=== PATIENT | male | born 1965 | race Caucasian/White ===

== ENCOUNTER 2016-09-29 19:25 | Emergency (ER) | payer BC ==
[~2016-09-29 19:25] MED LIST: Acetaminophen/HYDROcodone 325-5 MG Tab PO ONE
[2016-09-29 19:35] VITALS: BP 129/75
[2016-09-29] MEDS ORDERED: Morphine 4 MG/ML Syringe IM ONE (19:43)
[2016-09-29] MEDS ORDERED: Ondansetron 4 MG Tab.DIS PO ONE ×2 (19:43→21:45)
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
[2016-09-29] MEDS ORDERED: Ondansetron 4 MG/2 ML SDV IVPUSH STA (21:21)
[2016-09-29] MEDS ORDERED: HYDROmorphone 1 MG/ML Syringe IVPUSH ONE (21:21)
[2016-09-29] MEDS ORDERED: HYDROmorphone 1 MG/ML Syringe IM ONE (21:45)
[2016-09-29] MEDS ORDERED: Take Home: Acetaminophen/HYDROcodone 325-5 MG, 2 Tab Pack PO ONE (22:00)
[2016-09-29] MEDS ORDERED: Acetaminophen/HYDROcodone 325-5 MG Tab ONE (22:02)
== END 2016-09-29 22:15 | disposition home or self-care (01) ==
LOC: CC.ED 19:25
DX: S42.114A Nondisplaced fracture of body of scapula, right shoulder, initial encounter for closed fracture (principal); Z79.4 Long term (current) use of insulin; Z79.899 Other long term (current) drug therapy; W01.0XXA Fall on same level from slipping, tripping and stumbling without subsequent striking against object, initial encounter; Y93.89 Activity, other specified
CPT/HCPCS: 73030; 96372; 99283; A9270; J1170; J2270

== ENCOUNTER 2022-12-02 14:33 | Emergency (ER) | payer OTHER, BC ==
[2022-12-02] MEDS ORDERED: Diphtheria,Pertussis(Acell),Tetanus Vaccine 0.5 ML Syringe IM ONE (14:44)
[2022-12-02] MEDS ORDERED: Bupivacaine 0.25% 10 ML SDV INJECT ONE (14:45)
[2022-12-02] MEDS ORDERED: Bupivacaine 0.5% 10 ML SDV ONE (14:47)
[2022-12-02 15:01] VITALS: BP 92/63; PULSE 75
[2022-12-02] MEDS ORDERED: Lidocaine 2% 5 ML SDV ONE (15:16)
== END 2022-12-02 15:48 | disposition home or self-care (01) ==
LOC: CC.ED 14:33
DX: S62.632A Displaced fracture of distal phalanx of right middle finger, initial encounter for closed fracture (principal); E78.00 Pure hypercholesterolemia, unspecified; I10 Essential (primary) hypertension; E10.9 Type 1 diabetes mellitus without complications; Z79.4 Long term (current) use of insulin; Z79.899 Other long term (current) drug therapy; Z23 Encounter for immunization; W20.8XXA Other cause of strike by thrown, projected or falling object, initial encounter; Y99.0 Civilian activity done for income or pay
CPT/HCPCS: 11760; 73130-RT; 90471; 90715; 99283-25; J3490